=== PATIENT | male | born 1955 | race Caucasian/White ===

== ENCOUNTER 2016-08-18 11:49 | Inpatient (IN) | payer OTHER ==
[~2016-08-18] VITALS: Ht 177.8 cm; Wt 83.0 kg
[2016-08-18 12:19] LABS: EOSINOPHIL (%) 0.2 % (0-5); HEMATOCRIT 44.2 % (38.0-50.0); IMMATURE GRANULOCYTE (%) 0.2 % (0.0-0.7); IMMATURE GRANULOCYTE COUNT 0.2 K/uL; LYMPHOCYTE COUNT 1.3 K/uL (1.0-2.8); MCH 32.1 PG (29.0-34.0); MCHC 33.7 G/DL (30.0-36.0); MCV 95.3 FL (86-99); MEAN PLAT.VOLUME 9.4 uM^3 (9.0-12.4); MONOCYTE (%) 11.3 % (3-12); MONOCYTE COUNT 0.9 K/uL (0-0.8); NEUTROPHIL (%) 72.2 % (45-76); NEUTROPHIL COUNT 5.8 K/uL (1.8-6.4); PLATELET COUNT 290 K/uL (156-360); RBC DIS.WIDTH-CV 13.2 % (11.8-14.6); RED BLOOD COUNT 4.64 M/uL (4.00-5.50); WHITE BLOOD COUNT 8.1 K/uL (4.1-10.2)
[2016-08-18 12:28] LABS: INTER. NORMALIZED RATIO 1.2; PROTHROMBIN TIME 12.2 (9.2-11.2); PTT 27.8 (25-32)
[2016-08-18 12:31] LABS: AMYLASE 44 IU/L (1-118); CHLORIDE 106 mEq/L (99-109); POTASSIUM 4.3 mEq/L (3.7-5.4); SODIUM 142 mEq/L (136-147)
[2016-08-18 12:33] LABS: GLUCOSE 131 mg/dL (70-99)
[2016-08-18 12:34] LABS: ANION GAP 15 MEQ/L (2-14)
[2016-08-18 12:36] LABS: SERUM ETHYL ALCOHOL < 10 mg/dL
[2016-08-18 12:37] LABS: GFR ESTIMATE (CALCULATED) 55 mL/min/
[2016-08-18 12:38] LABS: UREA NITROGEN (BUN) 17 mg/dL (9-23)
[2016-08-18 12:40] LABS: LIPASE 15 U/L (1.0-51.0)
[2016-08-18 12:43] LABS: TROP-I INTERPRETATION NEGATIVE; TROPONIN-I 0.04 ng/mL (0.0-0.30)
[2016-08-18] MEDS ORDERED: PLAVIX75 MG PO (14:22)
[2016-08-18] MEDS ORDERED: ZESTRIL10 MG PO (14:22)
[2016-08-18] MEDS ORDERED: METOPROLOL SUC100 MG PO (14:22)
[2016-08-18] MEDS ORDERED: CLONAZEPAM0.5 MG PO (14:23)
[2016-08-18] MEDS ORDERED: ASPIRIN325 MG PO (14:23)
[2016-08-18 16:11] LABS: CREATINE KINASE 4172 IU/L (1-294)
[2016-08-18 16:30] VITALS: BP 119/55
[2016-08-18 17:36] LABS: BASE EXCESS 0.8 mEq/L (-3 to +3); BICARBONATE 26.6 mEq/L (22-26); CARBOXY HGB 4.9 % (0-5); METHEMOGLOBIN 1.7 % (0-1.5); PCO2 46 mm Hg (35-45); PO2 103 mm Hg (80-100); pH 7.37 (7.35-7.45)
[2016-08-18 17:37] LABS: COMMENTS - BLOOD GASES A+C+; DEVICE NC; O2 FLOW 4 L/MIN; SITE RR; TOTAL RESP RATE 19 resp/min
[2016-08-18 18:00] VITALS: BP 115/56
[2016-08-18 18:00] LABS: METH RESISTANT S AUREUS PCR NEGATIVE (NEGATIVE)
[2016-08-18 18:02] LABS: PROBE CHECK PASS; SPECIMEN PROCESSING CONTROL PASS
[2016-08-18 18:23] LABS: ADD MIUA? YES; BILIRUBIN NEGATIVE; BLOOD MODERATE; COLOR YELLOW ((YELLOW)); GLUCOSE (STRIP) NEGATIVE; KETONES TRACE; LEUKOCYTES NEGATIVE; NITRITE NEGATIVE; PROTEIN (STRIP) 30
[2016-08-18 18:38] LABS: ADD MEDTOX COMMENT Y; AMPHETAMINE NEGATIVE (500 ng/mL); BARBITURATES NEGATIVE (200 ng/mL); BENZODIAZEPINES PRESUMPTIVE POSITIVE (150 ng/mL); COCAINE NEGATIVE (150 ng/mL); INTERNAL CONTROLS VALID? YES; METHADONE NEGATIVE (200 ng/mL); METHAMPHETAMINE NEGATIVE (500 ng/mL); OPIATES (MORPHINE) NEGATIVE (100 ng/mL); OXYCODONE NEGATIVE (100 ng/mL); PHENCYCLIDINE NEGATIVE (25 ng/mL); PROPOXYPHENE NEGATIVE (300 ng/mL); THC CANNABINOIDS NEGATIVE (50 ng/mL); TRICYCLIC ANTIDEPRESSANTS NEGATIVE (300 ng/mL)
[2016-08-18 19:01] LABS: TROP-I INTERPRETATION NEGATIVE; TROPONIN-I 0.05 ng/mL (0.0-0.30)
[2016-08-18 19:11] LABS: BACTERIA RARE; CASTS PRESENT /LPF; CRYSTALS PRESENT; EPITHELIAL CELLS RARE; HYALINE CASTS 0-5 /LPF; MUCUS RARE; RED BLOOD CELLS 0-5 /HPF (0-5); UCUL ADDED? NO; URIC ACID CRYSTALS 1+; WHITE BLOOD CELLS 0-5 /HPF (0-5)
[2016-08-18 19:12] LABS: SPECIFIC GRAVITY 1.066 (1.000-1.030)
[2016-08-18 19:30] LABS: BENZODIAZEPINES QUANT VALUE 0 NG/ML
[2016-08-18 19:40] LABS: BENZODIAZEPINES, URINE SCREEN Negative (200 ng/mL)
[2016-08-18 20:00] VITALS: BP 132/65
[2016-08-18 22:00] VITALS: BP 131/69
[2016-08-19] VITALS (11 sets, daily range): BP systolic 105–142; BP diastolic 57–82
[2016-08-19 00:51] LABS: TROP-I INTERPRETATION NEGATIVE; TROPONIN-I 0.05 ng/mL (0.0-0.30)
[2016-08-19 05:38] LABS: TROP-I INTERPRETATION NEGATIVE; TROPONIN-I 0.05 ng/mL (0.0-0.30)
[2016-08-19 06:40] LABS: ALKALINE PHOSPHATASE 56 IU/L (3-129); ANION GAP 10 MEQ/L (2-14); CHLORIDE 105 MEQ/L (99-109); GFR ESTIMATE (CALCULATED) > 59 mL/min/; GLUCOSE 106 mg/dL (70-99); POTASSIUM 4.5 MEQ/L (3.7-5.4); SAMPLE HEMOLYSIS CHECK 0; SAMPLE ICTERIC CHECK 0; SAMPLE LIPEMIA CHECK 0; SODIUM 140 MEQ/L (136-147); UREA NITROGEN (BUN) 15 mg/dL (9-23)
[2016-08-19 12:36] LABS: HDL CHOLESTEROL 23 MG/DL (Desirable>=40); LDL CHOLESTEROL 152 mg/dL (Desirable<100); NON-HDL CHOLESTEROL 178 mg/dL (Desirable<160); TOTAL CHOLESTEROL 201 mg/dL (Desirable<200); TRIGLYCERIDES 129 MG/DL (Normal: <150)
[2016-08-19] MEDS ORDERED: CLONAZEPAM2 MG PO (16:53)
[2016-08-19] MEDS ORDERED: ROPINIROLE HCL1 MG PO (16:54)
[2016-08-19] MEDS ORDERED: METOPROLOL SUCC50 MG PO (16:54)
[2016-08-19] MEDS ORDERED: 24HOUR ALLERGY10 MG PO (16:55)
[2016-08-19] MEDS ORDERED: ADVAIR HFA120 INHAL1 IH (16:55)
[2016-08-19] MEDS ORDERED: VENTOLIN HFA18 GM IH (16:56)
[2016-08-19] MEDS ORDERED: LOVASTATIN10 MG PO (16:57)
[2016-08-19] MEDS ORDERED: OMEPRAZOLE20 MG PO (16:57)
[2016-08-19] MEDS ORDERED: PRADAXA110 MG PO (16:58)
[2016-08-19 18:36] LABS: Estimated Average Glucose 126 mg/dL (70-123)
[2016-08-20] VITALS (8 sets, daily range): BP systolic 116–140; BP diastolic 60–79
[2016-08-20 05:51] LABS: HEMATOCRIT 40.9 % (38.0-50.0); MCH 31.3 PG (29.0-34.0); MCHC 31.8 G/DL (30.0-36.0); MCV 98.6 FL (86-99); MEAN PLAT.VOLUME 9.9 uM^3 (9.0-12.4); PLATELET COUNT 254 K/uL (156-360); RBC DIS.WIDTH-CV 13.1 % (11.8-14.6); RBC DIS.WIDTH-SD 47.1 % (39-53); RED BLOOD COUNT 4.15 M/uL (4.00-5.50); WHITE BLOOD COUNT 8.9 K/uL (4.1-10.2)
[2016-08-20 06:15] LABS: ANION GAP 9 MEQ/L (2-14); CHLORIDE 108 MEQ/L (99-109); GFR ESTIMATE (CALCULATED) > 59 mL/min/; GLUCOSE 101 mg/dL (70-99); POTASSIUM 4.4 MEQ/L (3.7-5.4); SAMPLE HEMOLYSIS CHECK 0; SAMPLE ICTERIC CHECK 0; SAMPLE LIPEMIA CHECK 0; SODIUM 142 MEQ/L (136-147); UREA NITROGEN (BUN) 14 mg/dL (9-23)
[2016-08-20] MEDS ORDERED: LO-DOSE ASPIRIN81 M2 PO (17:20)
[2016-08-21] VITALS: BP 135/75
[2016-08-21 04:00] VITALS: BP 122/71
[2016-08-21 05:57] LABS: EOSINOPHIL (%) 6.9 % (0-5); EOSINOPHIL COUNT 0.6 K/uL (0-0.3); HEMATOCRIT 38.6 % (38.0-50.0); IMMATURE GRANULOCYTE (%) 0.2 % (0.0-0.7); LYMPHOCYTE COUNT 2.5 K/uL (1.0-2.8); MCH 31.6 PG (29.0-34.0); MCHC 32.1 G/DL (30.0-36.0); MCV 98.2 FL (86-99); MEAN PLAT.VOLUME 9.7 uM^3 (9.0-12.4); MONOCYTE (%) 8.4 % (3-12); MONOCYTE COUNT 0.7 K/uL (0-0.8); NEUTROPHIL (%) 53.9 % (45-76); NEUTROPHIL COUNT 4.3 K/uL (1.8-6.4); PLATELET COUNT 245 K/uL (156-360); RBC DIS.WIDTH-SD 46.7 % (39-53); RED BLOOD COUNT 3.93 M/uL (4.00-5.50); WHITE BLOOD COUNT 8.1 K/uL (4.1-10.2)
[2016-08-21 06:09] LABS: ANION GAP 8 MEQ/L (2-14); CHLORIDE 110 MEQ/L (99-109); GFR ESTIMATE (CALCULATED) > 59 mL/min/; GLUCOSE 90 mg/dL (70-99); POTASSIUM 4.1 MEQ/L (3.7-5.4); SAMPLE HEMOLYSIS CHECK 0; SAMPLE ICTERIC CHECK 0; SAMPLE LIPEMIA CHECK 0; SODIUM 142 MEQ/L (136-147); UREA NITROGEN (BUN) 14 mg/dL (9-23)
[2016-08-21 08:00] VITALS: BP 103/68
[2016-08-21 12:00] VITALS: BP 104/71
[2016-08-21 16:00] VITALS: BP 133/68
[2016-08-21 20:00] VITALS: BP 132/55
[2016-08-22] VITALS (7 sets, daily range): BP systolic 110–151; BP diastolic 66–77
[2016-08-22 05:31] LABS: EOSINOPHIL (%) 7.9 % (0-5); EOSINOPHIL COUNT 0.5 K/uL (0-0.3); HEMATOCRIT 40.2 % (38.0-50.0); IMMATURE GRANULOCYTE (%) 0.1 % (0.0-0.7); LYMPHOCYTE COUNT 2.2 K/uL (1.0-2.8); MCH 31.9 PG (29.0-34.0); MCHC 32.6 G/DL (30.0-36.0); MCV 97.8 FL (86-99); MEAN PLAT.VOLUME 9.9 uM^3 (9.0-12.4); MONOCYTE (%) 7.4 % (3-12); MONOCYTE COUNT 0.5 K/uL (0-0.8); NEUTROPHIL (%) 51.4 % (45-76); NEUTROPHIL COUNT 3.5 K/uL (1.8-6.4); PLATELET COUNT 260 K/uL (156-360); RBC DIS.WIDTH-SD 46.4 % (39-53); RED BLOOD COUNT 4.11 M/uL (4.00-5.50); WHITE BLOOD COUNT 6.7 K/uL (4.1-10.2)
[2016-08-22 05:56] LABS: ANION GAP 9 MEQ/L (2-14); CHLORIDE 108 MEQ/L (99-109); GFR ESTIMATE (CALCULATED) > 59 mL/min/; GLUCOSE 88 mg/dL (70-99); POTASSIUM 4.1 MEQ/L (3.7-5.4); SAMPLE HEMOLYSIS CHECK 0; SAMPLE ICTERIC CHECK 0; SAMPLE LIPEMIA CHECK 0; SODIUM 140 MEQ/L (136-147); UREA NITROGEN (BUN) 13 mg/dL (9-23)
[2016-08-23] VITALS: BP 125/69
[2016-08-23 04:01] VITALS: BP 120/71
[2016-08-23 06:06] LABS: HEMATOCRIT 38.6 % (38.0-50.0); MCH 31.5 PG (29.0-34.0); MCHC 32.6 G/DL (30.0-36.0); MCV 96.5 FL (86-99); MEAN PLAT.VOLUME 9.9 uM^3 (9.0-12.4); PLATELET COUNT 280 K/uL (156-360); RBC DIS.WIDTH-SD 45.1 % (39-53); WHITE BLOOD COUNT 8.3 K/uL (4.1-10.2)
[2016-08-23 06:18] LABS: EOSINOPHIL (%) 8.9 % (0-5); EOSINOPHIL COUNT 0.7 K/uL (0-0.3); IMMATURE GRANULOCYTE (%) 0.1 % (0.0-0.7); LYMPHOCYTE COUNT 2.2 K/uL (1.0-2.8); MONOCYTE (%) 9.3 % (3-12); MONOCYTE COUNT 0.8 K/uL (0-0.8); NEUTROPHIL (%) 55.1 % (45-76); NEUTROPHIL COUNT 4.6 K/uL (1.8-6.4)
[2016-08-23 06:25] LABS: ANION GAP 8 MEQ/L (2-14); CHLORIDE 108 MEQ/L (99-109); GFR ESTIMATE (CALCULATED) > 59 mL/min/; GLUCOSE 101 mg/dL (70-99); POTASSIUM 3.8 MEQ/L (3.7-5.4); SAMPLE HEMOLYSIS CHECK 0; SAMPLE ICTERIC CHECK 0; SAMPLE LIPEMIA CHECK 0; SODIUM 139 MEQ/L (136-147); UREA NITROGEN (BUN) 12 mg/dL (9-23)
[2016-08-23 07:37] VITALS: BP 123/68
[2016-08-23 11:22] VITALS: BP 111/59
[2016-08-23 15:19] VITALS: BP 141/78
[2016-08-23 20:05] VITALS: BP 135/85
[2016-08-24] VITALS: BP 138/90
[2016-08-24 04:04] VITALS: BP 145/78
[2016-08-24 08:02] VITALS: BP 124/75
[2016-08-24 12:01] VITALS: BP 131/73
[2016-08-24 16:40] VITALS: BP 142/93
[2016-08-24 20:00] VITALS: BP 132/77
[2016-08-25] VITALS: BP 121/71
[2016-08-25 04:29] VITALS: BP 141/63
[2016-08-25 08:06] VITALS: BP 123/67
[2016-08-25 11:09] VITALS: BP 137/80
[2016-08-25 15:17] VITALS: BP 133/64
[2016-08-25 19:49] VITALS: BP 140/63
[2016-08-26 03:56] VITALS: BP 139/71
[2016-08-26 07:47] VITALS: BP 132/70
[2016-08-26 16:25] VITALS: BP 141/75
[2016-08-26 19:53] VITALS: BP 129/73
[2016-08-26 23:00] VITALS: BP 120/62
[2016-08-27 00:12] VITALS: BP 124/65
[2016-08-27 03:57] VITALS: BP 125/67
[2016-08-27 07:32] LABS: HEMATOCRIT 42.4 % (38.0-50.0); MCH 31.4 PG (29.0-34.0); MCHC 32.5 G/DL (30.0-36.0); MCV 96.6 FL (86-99); MEAN PLAT.VOLUME 9.9 uM^3 (9.0-12.4); PLATELET COUNT 340 K/uL (156-360); RBC DIS.WIDTH-CV 13.5 % (11.8-14.6); RBC DIS.WIDTH-SD 47.6 % (39-53); RED BLOOD COUNT 4.39 M/uL (4.00-5.50)
[2016-08-27 07:34] LABS: WHITE BLOOD COUNT 12.1 K/uL (4.1-10.2)
[2016-08-27 07:48] LABS: ANION GAP 11 MEQ/L (2-14); CHLORIDE 105 MEQ/L (99-109); GFR ESTIMATE (CALCULATED) > 59 mL/min/; GLUCOSE 96 mg/dL (70-99); POTASSIUM 3.7 MEQ/L (3.7-5.4); SAMPLE HEMOLYSIS CHECK 0; SAMPLE ICTERIC CHECK 0; SAMPLE LIPEMIA CHECK 0; SODIUM 140 MEQ/L (136-147); UREA NITROGEN (BUN) 15 mg/dL (9-23)
[2016-08-27 08:08] VITALS: BP 143/82
[2016-08-27 12:05] VITALS: BP 147/74
[2016-08-27 16:07] VITALS: BP 144/77
[2016-08-27 20:20] VITALS: BP 111/78
[2016-08-28 00:21] VITALS: BP 112/76
[2016-08-28 04:20] VITALS: BP 113/76
[2016-08-28 06:42] LABS: HEMATOCRIT 44.9 % (38.0-50.0); MCH 30.9 PG (29.0-34.0); MCHC 32.1 G/DL (30.0-36.0); MCV 96.4 FL (86-99); MEAN PLAT.VOLUME 9.9 uM^3 (9.0-12.4); PLATELET COUNT 358 K/uL (156-360); RBC DIS.WIDTH-CV 13.5 % (11.8-14.6); RED BLOOD COUNT 4.66 M/uL (4.00-5.50); WHITE BLOOD COUNT 12.5 K/uL (4.1-10.2)
[2016-08-28 07:28] LABS: ANION GAP 11 MEQ/L (2-14); CHLORIDE 107 MEQ/L (99-109); GFR ESTIMATE (CALCULATED) > 59 mL/min/; GLUCOSE 101 mg/dL (70-99); MAGNESIUM 2.3 mg/dl (1.3-2.7); SAMPLE HEMOLYSIS CHECK 0; SAMPLE ICTERIC CHECK 0; SAMPLE LIPEMIA CHECK 0; SODIUM 144 MEQ/L (136-147); UREA NITROGEN (BUN) 19 mg/dL (9-23)
[2016-08-28 07:29] LABS: POTASSIUM 4.7 MEQ/L (3.7-5.4)
[2016-08-28 07:45] VITALS: BP 144/71
[2016-08-28 16:11] VITALS: BP 128/61
[2016-08-28 16:54] LABS: ADD MIUA? YES; BILIRUBIN SMALL; BLOOD SMALL; COLOR DK YELLOW ((YELLOW)); GLUCOSE (STRIP) NEGATIVE; KETONES 15; LEUKOCYTES SMALL; NITRITE NEGATIVE; PH, URINE 5.5 (5-8); PROTEIN (STRIP) 30; SPECIFIC GRAVITY 1.027 (1.000-1.030); UROBILINOGEN 0.2 MG/DL (0.2-1.0)
[2016-08-28 17:29] LABS: AMORPHOUS URATES CRYSTALS 2+; BACTERIA NONE SEEN; CASTS NONE SEEN /LPF; CRYSTALS PRESENT; EPITHELIAL CELLS NONE SEEN; MUCUS 1+; UCUL ADDED? NO
[2016-08-29] VITALS: BP 131/80
[2016-08-29 07:25] VITALS: BP 112/69
[2016-08-29 07:47] LABS: HEMATOCRIT 43.4 % (38.0-50.0); MCH 31.3 PG (29.0-34.0); MCHC 32.7 G/DL (30.0-36.0); MCV 95.8 FL (86-99); MEAN PLAT.VOLUME 9.8 uM^3 (9.0-12.4); PLATELET COUNT 369 K/uL (156-360); RBC DIS.WIDTH-CV 13.5 % (11.8-14.6); RBC DIS.WIDTH-SD 46.5 % (39-53); RED BLOOD COUNT 4.53 M/uL (4.00-5.50)
[2016-08-29] MEDS ORDERED: XARELTO20 MG PO (11:59)
[2016-08-29] MEDS ORDERED: LISINOPRIL5 MG PO (11:59)
[2016-08-29] MEDS ORDERED: METOPROLOL SUCC25 MG PO (11:59)
[2016-08-29 15:13] VITALS: BP 132/91
[2016-08-30] VITALS: BP 121/61
[2016-08-30 07:36] VITALS: BP 122/68
== END 2016-08-30 16:19 | DRG 64 ==
LOC: EME 11:49 → 4WEST 14:58 → EDOF 14:58 → 4WEST 16:22 → 5SOUTH 08-22 20:08
PROVIDERS: Emergency Medicine; Hospitalist; Internal Medicine; Nurse Practitioner Adult Health; Physician Assistant; Physician Assistant Medical
DX: I62.9 Nontraumatic intracranial hemorrhage, unspecified (principal); I63.9 Cerebral infarction, unspecified; G93.40 Encephalopathy, unspecified; J69.0 Pneumonitis due to inhalation of food and vomit; G93.6 Cerebral edema; G81.91 Hemiplegia, unspecified affecting right dominant side; N17.9 Acute kidney failure, unspecified; J44.1 Chronic obstructive pulmonary disease with (acute) exacerbation; M62.82 Rhabdomyolysis; I48.92 Unspecified atrial flutter; I10 Essential (primary) hypertension; I48.0 Paroxysmal atrial fibrillation; I25.10 Atherosclerotic heart disease of native coronary artery without angina pectoris; Z95.810 Presence of automatic (implantable) cardiac defibrillator; Z86.73 Personal history of transient ischemic attack (TIA), and cerebral infarction without residual deficits; G35 Multiple sclerosis; F17.200 Nicotine dependence, unspecified, uncomplicated; E86.0 Dehydration; E78.2 Mixed hyperlipidemia; R47.01 Aphasia; I50.9 Heart failure, unspecified; G58.8 Other specified mononeuropathies; Z91.81 History of falling
CPT/HCPCS: 36600; 70450; 70496; 70498; 71010; 71020; 71275; 72131; 80048; 80053; 80061; 81003; 82150; 82550 91; 82803; 82948; 83036; 83690; 83735; 84484; 84999; 85025; 85027; 85610; 85730; 86850; 86900; 86901; 87641; 92507 GN; 92523 GN; 92526 GN; 92610 GN; 93005; 93306; 94640; 94640 76; 94760; 94799; 95819; 97530 GO; 97530 GP; 97532 GN; 99202; 99281; 99285; G0480; J0295; J1644; J1953; J7030; J7050